=== PATIENT | female | born 1995 | race Caucasian/White ===

== ENCOUNTER 2024-06-04 15:59 | Emergency (ER) | payer SELFPAY ==
[~2024-06-04] VITALS: Ht 182.9 cm; Wt 63.0 kg
[2024-06-04] MEDS: ondansetron 4mg rapidly disintigrating tab PO ONE (18:32)
[2024-06-04] MEDS: ibuprofen tablet 400 MG TABLET PO ONE (18:32)
[2024-06-04 18:34] VITALS: BP 118/78; PULSE 78; RESP 12; TEMP 97.2; O2SAT 99
== END 2024-06-04 18:37 | disposition home or self-care (01) ==
LOC: ER 16:00
DX: S60.511A Abrasion of right hand, initial encounter (principal); F07.81 Postconcussional syndrome; V00.141A Fall from scooter (nonmotorized), initial encounter; Y93.89 Activity, other specified; Y92.89 Other specified places as the place of occurrence of the external cause; Y99.8 Other external cause status
CPT/HCPCS: 73110; 73564; 99284